=== PATIENT | male | born 1960 | race Caucasian/White ===

== ENCOUNTER 2021-07-07 12:00 | Emergency (ER) | payer OTHER ==
[~2021-07-07] VITALS: Ht 175.3 cm; Wt 69.2 kg
[2021-07-07 12:00] VITALS: BP 154/103
[2021-07-07] MEDS ORDERED: ORPHENADRINE CITRATE 60 MG/2 ML VIAL. IM ONE (12:15)
[2021-07-07] MEDS ORDERED: KETOROLAC 60 MG/2 ML VIAL. IM ONE (12:15)
--- NOTE | 2021-07-07 12:18 | PHYS DOC ---
General Adult EDM: Chief Complaint: LOWER BACK PAIN OR INJURY HPI: HPI: Patient is a 60-year-old male being seen in the ER for left lower back pain that occurred after he was lifting heavy object at work. Patient denies any radiation of pain. He rates it 6 out of 10. No treatment prior to arrival. Patient has no medical history. Patient denies any numbness or tingling in his extremities, saddle anesthesias, loss of bowel or bladder. Patient is ambulatory. (REBEKAH LANDRY APRN) Review of Systems: Review of Systems: 14 body systems of the review of systems have been reviewed. See HPI for pertinent positive and negative responses, otherwise all other systems are negative, nonpertinent or noncontributory (REBEKAH LANDRY APRN) Allergies: Allergies: Allergies Coded Allergies Type Severity Reaction Last Updated Verified No Known Drug Allergies 07/07/21 No (REBEKAH LANDRY APRN) Physical Exam: PE: Constitutional: Well developed, well nourished, no acute distress, non-toxic appearance. [] HENT: Normocephalic, atraumatic Eyes: PERRL, EOMI, conjunctiva normal, no discharge. [] Neck: Normal range of motion, no bony spinal tenderness, supple, no stridor Cardiovascular:Heart rate regular rhythm, no murmur [] Lungs & Thorax: Bilateral breath sounds clear to auscultation [] Abdomen: Bowel sounds normal, soft, no tenderness, no masses, no pulsatile masses. [] Skin: Warm, dry, no erythema, no rash. [] Back: No bony spinal tenderness, left-sided lumbar paraspinal tenderness Extremities: No tenderness, no cyanosis, no clubbing, ROM intact, no edema. [] Neurologic: Alert and oriented X 3, normal motor function, normal sensory function, no focal deficits noted. [] Psychologic: Affect normal, judgement normal, mood normal. [] (REBEKAH LANDRY APRN) EKG: EKG: [] (REBEKAH LANDRY APRN) Radiology/Procedures: Radiology/Procedures: PROCEDURE: CT LUMBAR SPINE WO CONTRAST PQRS Compliance Statement: One or more of the following individualized dose reduction techniques were utilized for this examination: 1. Automated exposure control 2. Adjustment of the mA and/or kV according to patient size 3. Use of iterative reconstruction technique CT LUMBAR SPINE WO Clinical Indication: Reason: back injury / Spl. Instructions: / History: Comparison: None. TECHNIQUE: Helical CT imaging of the lumbar spine is performed without IV contrast. Findings: There is no acute fracture or subluxation of the lumbar spine. There is no disc space narrowing. There is minimal degenerative endplate spurring in the lumbar spine. Question old fracture of the left L1 transverse process. There is transitional lumbosacral anatomy. The last fully formed disc space will be considered L5/S1. L1/L2 and L2/L3: Unremarkable. L3/L4: There is a disc bulge that is left lateral with involvement of the neural foramen, left neural foraminal narrowing is probably moderate. The right neural foramen and central canal are patent. L4/L5: The central canal and neural foramina are widely patent. L5/S1: There is minimal posterior disc bulge. The central canal is adequate. The neural foramina are patent. Mild atherosclerotic calcification of the abdominal aorta, no aneurysm. IMPRESSION: 1. No acute fracture or malalignment of the lumbar spine. 2. There is a left lateral disc bulge of L3/L4 with moderate narrowing of the left neural foramen. Electronically signed by: Socrates Cornejo MD (07/07/2021 1:16 PM) [id number] DICTATED AND SIGNED BY: SOCRATES CORNEJO MD DATE: 07/07/21 123 CC: REBEKAH LANDRY APRN; PCP,NO ~MTH0 0[] (REBEKAH LANDRY APRN) Heart Score: C/O Chest Pain: No Risk Factors: Risk Factors: DM, Current or recent (<one month) smoker, HTN, HLP, family history of CAD, obesity. Risk Scores: Score 0 - 3: 2.5% MACE over next 6 weeks - Discharge Home Score 4 - 6: 20.3% MACE over next 6 weeks - Admit for Clinical Observation Score 7 - 10: 72.7% MACE over next 6 weeks - Early Invasive Strategies (REBEKHA LANDRY APRN) Course & Med Decision Making: Course & Med Decision Making Pertinent Labs and Imaging studies reviewed. (See chart for details) [] Patient is a 60-year-old male who was at work when he was lifting a heavy couch and started having left lower back pain. Imaging was performed of his lumbar spine and it showed no acute fracture or misalignment but did show a disc bulge of L3 and L4. Patient treated with anti-inflammatory and muscle relaxers in the ER. Patient advised to take anti-inflammatory medications at home and apply ice. I discussed with patient all findings and diagnostic testing as well as the need to follow-up with PCP for further evaluation and treatment or return to the ER if any new or worsening symptoms. Strict return precautions were also discussed at length. Patient voiced understanding and agreement with the plan. Patient is hemodynamically stable at the time of disposition. (REBEKAH LANDRY APRN) Course & Med Decision Making I was the Attending physician on the above date of service of this patient. This patient was evaluated, examined, treated, and dispositioned from the emergency department by the mid-level practitioner. Although I was working at the time , no assistance was requested. Electronically signed, Paty Guzman DO (PATY GUZMAN DO) Kaylene Disclaimer: Kaylene Disclaimer: This electronic medical record was generated, in whole or in part, using a voice recognition dictation system. (REBEKAH LANDRY APRN) Departure Departure: Impression: Primary Impression: Back pain Qualified Codes: M54.5 - Low back pain Disposition: HOME / SELF CARE / HOMELESS Condition: GOOD Referrals: PCP,NO (PCP) Patient Instructions: Back Pain, Adult Additional Instructions: You were seen in the ER today for low back pain after heavy lifting. A CT was performed of your lumbar spine that showed no fracture or misalignment but did show L3/L4 disc bulge. You were treated in the ER with anti-inflammatory medications and muscle relaxers. Continue to take anti-inflammatory medications like ibuprofen or naproxen at home. You are being discharged home with a muscle relaxer that you can take. This medication may cause sedation so do not take any need to be alert and do not take with alcohol. Follow-up with your primary care provider tomorrow regarding your ER visit. If you develop worsening of your pain, loss of bowel or bladder, numbness or tingling in your groin or extremities or any new or worsening concerns please return to the ER. EMERGENCY DEPARTMENT GENERAL DISCHARGE INSTRUCTIONS Thank you for coming to [facility] (ED) today and trusting us with you care. We trust that you had a positivie experience in our Emergency Department. If you wish to speak to the department management, you may call the director at . YOUR FOLLOW UP INSTRUCTIONS ARE FOLLOWS: 1. Do you have a private Doctor? If you do not have a private doctor, please ask for a resource list of physicians or clinics that may be able to assist you with follow up care. 2. The Emergency Physician has interpreted your x-rays. The X-Ray specialist will also review them. If there is a change in the findings, you will be notified in 48 hours when at all possible. 3. A lab test or culture has been done, your results will be reviewed and you will be notified if you need a change in treatment. ADDITIONAL INSTRUCTIONS AND INFORMATION: 1. Your care today has been supervised by a physician who is specially trained in emergency care. Many problems require more than one evaluation for a complete diagnosis and treatment. We recommend that you schedule your follow up appointment as recommended to ensure complete treatment of you illness or injury. If you are unable to obtain follow up care and continue to have a problem, or if your condition worsens, we recommend that you return to the ED. 2. We are not able to safely determine your condition over the phone nor are we able to give sound medical advice over the phone. For these safety reasons, if you call for medical advice we will ask you to come to the ED for further evaluation. 3. If you have any questions regarding these discharge instructions please call the ED at [phone]. SAFETY INFORMATION: In the interest of safety, wellness, and injury prevention; we encourage you to wear your sealbelt, if you smoke; quite smoking, and we encourage family to use a protective helmet for bicycling and other sporting events that present an increased risk for head injury. IF YOUR SYMPTOMS WORSEN OR NEW SYMPTOMS DEVELOP, OR YOU HAVE CONCERNS ABOUT YOUR CONDITION; OR IF YOUR CONDITION WORSENS WHILE YOU ARE WAITING FOR YOUR FOLLOW UP APPOINTMENT; EITHER CONTACT YOUR PRIMARY CARE DOCTOR, THE PHYSICIAN WHOSE NAME AND NUMBER YOU WERE GIVEN, OR RETURN TO THE ED IMMEDIATELY. Scripts Cyclobenzaprine Hcl (CYCLOBENZAPRINE HCL) 5 Mg Tablet 1 TAB PO TID for muscle spasm for 5 Days, #15 TAB 0 Refills Prov: REBEKAH LANDRY APRN 07/07/21 REBEKAH LANDRY APRN Jul 07, 2021 12:18 PATY GUZMAN DO Jul 08, 2021 06:19
--- NOTE | 2021-07-07 13:19 | RAD ---
RS Compliance Statement: One or more of the following individualized dose reduction techniques were utilized for this examinat ion: 1. Automated exposure control 2. Adjustment of the mA and/or kV according to patient size 3. Use of iterative reconstruction technique CT LUMBAR SPINE WO Clinical Indication: Reason: back injury / Spl. Instructions: / History: Comparison: None. TECHNIQUE: Helical CT imaging of the lumbar spine is performed without IV contrast. Findings: There is no acute fracture or subluxation of the lumbar spine. There is no disc space narrowing. Ther e is minimal degenerative endplate spurring in the lumbar spine. Question old fracture of the left L1 transverse process. There is transitional lumbosacral anatomy. The last fully formed disc space will be considered L5/S1. L1/L2 and L2/L3: Unremarkable. L3/L4: There is a disc bulge that is left lateral with involvement of the neural foramen, left neural foraminal narrowing is probably moderate. The right neural foramen and central canal are patent. L4/L5: The central canal and neural foramina are widely patent. L5/S1: There is minimal posterior disc bulge. The central canal is adequate. The neural foramina are patent. Mild atherosclerotic calcification of the abdominal aorta, no aneurysm. IMPRESSION: 1. No acute fracture or malalignment of the lumbar spine. 2. There is a left lateral disc bulge of L3/L4 with moderate narrowing of the left neural foramen. Electronically signed by: Socrates Cornejo MD (07/07/2021 1:16 PM) [id number]
[2021-07-07] MEDS ORDERED: CYCL5TAB PO (13:24)
== END 2021-07-07 13:30 | disposition home or self-care (01) ==
LOC: ER 12:00
DX: M54.5 Low back pain (principal)
CPT/HCPCS: 72131; 96372; 99284; J1885; J2360